=== PATIENT | female | born 1965 | race Two or more races ===

== ENCOUNTER 2019-12-02 09:24 | Emergency (ER) | payer BC, OTHER ==
[~2019-12-02] VITALS: Ht 177.8 cm; Wt 102.1 kg
[2019-12-02 10:55] LABS: Basophils # (auto) 0 10 ^3/uL (0-0.2); Eosinophils # (auto) 0 10 ^3/uL (0-0.8); Hemoglobin 12.2 g/dL (12.2-16.2); Lymphocytes # (auto) 1.5 10 ^3/uL (0.4-5.4); Monocytes # (auto) 0.6 10 ^3/uL (0-1.3); Neutrophils # (auto) 4.9 10 ^3/uL (1.6-8.6)
[2019-12-02 10:57] LABS: Basophils % (auto) 0.2 % (0.0-2.0); Eosinophils % (auto) 0.2 % (0.0-7.0); Hematocrit 38.4 % (36.0-46.0); Lymphocytes % (auto) 21.1 % (10.0-50.0); Mean Corpuscular Hemoglobin 25.2 pg (28.0-32.0); Mean Corpuscular Hgb Conc. 31.7 g/dL (32.0-36.0); Mean Corpuscular Volume 79.4 fL (80.0-100.0); Neutrophils % (auto) 70.5 % (37.0-80.0); Nucleated Red Blood Cells % 0.1 %; Platelet Count (auto) 370 10^3/uL (140-450); Red Blood Cells 4.84 10^6/uL (4.0-5.20); White Blood Cell 6.9 10^3/uL (4.4-10.8)
[2019-12-02 10:58] LABS: Red Cell Distribution Width 21.3 % (11.8-14.3)
[2019-12-02 11:18] LABS: Albumin 3.3 g/dL (3.4-5.0); Anion Gap 7 (5-15); Calcium 8.6 mg/dL (8.5-10.1); Carbon Dioxide 27 mmol/L (21-32); Chloride 102 mmol/L (98-107); Glucose 113 mg/dL (74-106); Magnesium 2.3 mg/dL (1.6-2.6); Potassium 3.5 mmol/L (3.5-5.1); Sodium 136 mmol/L (136-145)
[2019-12-02 11:26] LABS: Lactic Acid w/Reflex 2.8 mmol/L (0.4-2.0)
[2019-12-02 11:27] LABS: Alanine Aminotransferase 14 U/L (13-56); Alkaline Phosphatase 85 U/L (45-117); Aspartate Aminotransferase 25 U/L (15-37); BUN/Creatinine Ratio 9.6; Bilirubin, Total 0.4 mg/dL (0.2-1.0); Blood Urea Nitrogen 9 mg/dL (7-18); GFR African American 79 mL/min; GFR Non-African American 65 mL/min
[2019-12-02] MEDS ORDERED: DexAMETHasone SOD PHOS 10MG/1ML VIAL INJ IV ONE (12:15)
[2019-12-02] MEDS ORDERED: hydrOXYchloroQUINE SULFATE 200 MG TAB PO ONE (12:15)
[2019-12-02] MEDS ORDERED: DOXYCYCLINE 100 MG TAB/CAP PO ONE (12:15)
[2019-12-02 14:11] VITALS: BP 112/67
== END 2019-12-02 14:13 | disposition home or self-care (01) ==
LOC: ER 09:24
DX: U07.1 COVID-19 (principal); J18.9 Pneumonia, unspecified organism; E86.0 Dehydration; R50.9 Fever, unspecified; E87.2 Acidosis; E46 Unspecified protein-calorie malnutrition
CPT/HCPCS: 36415; 71045; 80053; 83605; 83735; 84484; 85025; 87040; 93005; 96374; 99291; C9803; J1100; U0003

== ENCOUNTER 2020-01-08 07:24 | Emergency (ER) | payer BC ==
[~2020-01-08] VITALS: Ht 149.9 cm; Wt 99.8 kg
[2020-01-08 07:39] VITALS: BP 104/68
== END 2020-01-08 09:04 | disposition home or self-care (01) ==
LOC: ER 07:24
DX: S93.402A Sprain of unspecified ligament of left ankle, initial encounter (principal); S63.502A Unspecified sprain of left wrist, initial encounter; W19.XXXA Unspecified fall, initial encounter; Y93.89 Activity, other specified; Y92.89 Other specified places as the place of occurrence of the external cause; Y99.8 Other external cause status
CPT/HCPCS: 73110; 73610